=== PATIENT | male | born 1940 | race Caucasian/White ===

== ENCOUNTER 2016-09-11 18:33 | Emergency (ER) | payer SELFPAY ==
[~2016-09-11] VITALS: Ht 167.6 cm; Wt 63.5 kg
[2016-09-11 19:02] VITALS: Ht 167.6 cm; Wt 63.5 kg
== END 2016-09-11 20:04 | disposition left against medical advice (07) ==
LOC: FTE 18:33
DX: Z53.21 Procedure and treatment not carried out due to patient leaving prior to being seen by health care provider (principal)

== ENCOUNTER → 2016-09-12 | Outpatient (CLI) | payer MEDICARE, OTHER ==
--- NOTE | 2016-09-12 19:17 | RADRPT ---
PROCEDURE: XR Chest. CLINICAL INDICATION: Pleural effusion. History of aortic valve replacement. TECHNIQUE: Two views. Frontal and lateral. COMPARISON: No prior study is available for comparison. FINDINGS: There is a large right hydropneumothorax with the pneumothorax measuring approximately 70%. Moderat e right pleural fluid is present on the right. There is a small left pleural effusion. There is no left pneumothorax. The heart size is normal. There is an aortic valve replacement. There are sternal wires. Calcific ation is present in the aorta consistent with atherosclerosis. IMPRESSION: 1. Large right hydropneumothorax measuring approximately 70%. 2. Small left pleural effusion. 3. No left pneumothorax. 4. Aortic valve replacement. 5. Atherosclerosis. 6. Dr. Willi Alatorre was paged through his office answering service on 09/12/2016 at 1913 hours. RPTAT: QQ .Prosper Mahmood MD, MD Date Time Electronically viewed and signed by .Prosper Mahmood MD, on 09/12/2016 19:16 .R/
== END | disposition home or self-care (01) ==
LOC: RAD 08:29
PROVIDERS: ATTEND Emergency Medicine
DX: J90 Pleural effusion, not elsewhere classified (principal); Z95.2 Presence of prosthetic heart valve
CPT/HCPCS: 71020

== ENCOUNTER → 2016-10-17 | Outpatient (CLI) | payer MEDICARE, OTHER ==
--- NOTE | 2016-10-18 10:18 | RADRPT ---
PROCEDURE: XR Chest. CLINICAL INDICATION: Pleural effusion. Follow-up. TECHNIQUE: PA and lateral chest x-ray. COMPARISON: 09/12/2016 FINDINGS: Previous right-sided pneumothorax has resolved. There is persistent mild to moderate right pleural effusion present. Small left pleural effusion is unchanged. Bilateral basilar atelectasis is uncha nged. There has been interval placement of a left-sided dual chamber cardiac pacer. Sternotomy wir es are present. Calcific atherosclerosis of the aorta is present.. Cardiomediastinal silhouette is s table.. The osseous structures are unremarkable. IMPRESSION: 1. Interval placement of left-sided cardiac pacer. 2. Resolution of previous large right pneumothorax. 3. Persistent mild to moderate bilateral pleural effusions and bibasilar atelectasis. . RPTAT: QQ .Cong Tyson MD, MD Date Time Electronically viewed and signed by .Cong Tyson MD, MD on 10/18/2016 10:18 .L/
== END | disposition home or self-care (01) ==
LOC: RAD 08:49
PROVIDERS: ATTEND Thoracic Surgery (Cardiothoracic Vascular Surgery)
DX: J90 Pleural effusion, not elsewhere classified (principal); Z09 Encounter for follow-up examination after completed treatment for conditions other than malignant neoplasm
CPT/HCPCS: 71020

== ENCOUNTER → 2017-01-09 | Outpatient (CLI) | payer MEDICARE, OTHER ==
--- NOTE | 2017-01-09 11:52 | RADRPT ---
PROCEDURE: XR Chest. CLINICAL INDICATION: Weakness and shortness of breath. TECHNIQUE: Two views. Frontal and lateral. COMPARISON: 10/17/2016. FINDINGS: There is mild atelectasis at the lung bases with right worse than left. There are associated small bilateral pleural effusions with right larger than left. These are both smaller than seen previousl y. The lungs are otherwise clear. The heart is enlarged. There is an aortic valve replacement. There is a left subclavian dual lead p ermanent pacemaker/internal cardiac defibrillator. Calcifications are present in the aorta consiste nt with atherosclerosis. There are sternal wires. There is no pneumothorax. IMPRESSION: 1. Improved appearance of the lungs and smaller bilateral pleural effusions. 2. No other change from 10/17/2016. RPTAT: QQ .Prosper Mahmood MD, MD Date Time Electronically viewed and signed by .Prosper Mahmood MD, MD on 01/09/2017 11:51 .R/
== END | disposition home or self-care (01) ==
LOC: RAD 08:33
PROVIDERS: ATTEND Internal Medicine Cardiovascular Disease
DX: R06.02 Shortness of breath (principal); J90 Pleural effusion, not elsewhere classified
CPT/HCPCS: 71020